=== PATIENT | female | born 1960 ===

== ENCOUNTER 2020-06-06 17:15 | Emergency (ER) | payer OTHER ==
[~2020-06-06] VITALS: Ht 157.5 cm; Wt 71.7 kg
[2020-06-06] MEDS ORDERED: AVAPRO300 MG PO (17:46)
[2020-06-06] MEDS ORDERED: VITAMIN B-121000 MC2 SL (17:47)
== END 2020-06-06 21:25 | disposition home or self-care (01) ==
LOC: ER 17:15
DX: B02.9 Zoster without complications (principal); R10.11 Right upper quadrant pain

== ENCOUNTER 2022-10-16 19:39 | Emergency (ER) | payer OTHER ==
[~2022-10-16] VITALS: Ht 157.5 cm; Wt 68.9 kg
[~2022-10-16 19:39] MED LIST: AVAPRO300 MG PO; VITAMIN B-121000 MC2 SL
[2022-10-16] MEDS ORDERED: ATACAND32 MG (20:37)
== END 2022-10-17 00:05 | disposition home or self-care (01) ==
LOC: ER 19:39
DX: R31.9 Hematuria, unspecified (principal); M54.89 Other dorsalgia; Z88.6 Allergy status to analgesic agent